=== PATIENT | male | born 1955 | race American Indian/Alaskan Native ===

== ENCOUNTER 2018-03-02 15:42 | Emergency (ER) | payer BC ==
[2018-03-02 15:55] VITALS: O2SAT 98
[2018-03-02] MEDS ORDERED: Sodium Chloride 0.9% 1,000 ML IV ONE (16:21)
[2018-03-02 16:44] LABS: BASO % 0.3 % (0.0-2.0); EOS % 0.1 % (0.0-4.0); HEMOGLOBIN 17.2 g/dL (12.0-18.0); LYMPH # 2.2 K/uL (1.0-4.3); LYMPH % 16.2 % (20.0-40.0); MEAN CELL VOLUME 97.6 fL (80.0-94.0); MEAN CORPUSCULAR HEMOGLOBIN 34.2 pg (27.0-31.0); MEAN PLATELET VOLUME 7.7 fL (7.2-11.7); MONO # 0.6 K/uL (0.0-0.8); MONO % 4.5 % (0.0-10.0); NEUT # 10.7 K/uL (1.8-7.0); NEUT % 78.9 % (50.0-75.0); NRBC % 0.1 % (0.0-2.0); RBC 5.05 Mil/uL (4.40-5.90); WHITE BLOOD COUNT 13.5 K/uL (4.8-10.8)
[2018-03-02 16:48] LABS: PROTHROMBIN TIME 11.2 SECONDS (9.7-12.2)
[2018-03-02 16:52] LABS: ALBUMIN 4.6 g/dL (3.5-5.0); ALT/SGPT 37 U/L (21-72); AST/SGOT 29 U/L (17-59); BLOOD UREA NITROGEN 12 mg/dL (9-20); CALCIUM 9.7 mg/dl (8.6-10.4); GFR AFRICAN-AMERICAN > 60; GFR NON-AFRICAN AMERICAN > 60; LIPASE 186 U/L (23-300)
[2018-03-02 17:03] LABS: GRANULAR CAST 4 /lpf (0-1); SQUAMOUS EPITHIAL 3 /hpf (0-5); URINE BACTERIA RARE (<OCC); URINE BILIRUBIN NEGATIVE (NEGATIVE); URINE BLOOD 1+ (NEGATIVE); URINE CLARITY Hazy (Clear); URINE COLOR Amber (YELLOW); URINE GLUCOSE (UA) NORMAL (Normal); URINE LEUKOCYTE ESTERASE NEG Leu/uL (Negative); URINE PROTEIN 2+ mg/dL (NEGATIVE); URINE UROBILINOGEN NORMAL mg/dL (0.2-1.0)
--- NOTE | 2018-03-02 17:09 | C.PDOC ---
History Of Present Illness 62 yo male with PMH HTN c/o abdominal pain that started this morning waking him up from sleep. The pain is colicky and in the lower quadrants. Also notes he has had multiple episodes of diarrhea with one episode of diarrhea with blood streaks. Notes last night he ate take out which he initially thought caused the symptoms. H/o hemorrhoids with banding 15+ years ago. H/o colonoscopy 10+ yrs ago. Denies fever, chest pain, sob, dizziness, bleeding anywhere else, hematuria , or vomiting. Time Seen by Provider: 03/02/18 16:04 Chief Complaint (Nursing): Abdominal Pain History Per: Patient History/Exam Limitations: no limitations Onset/Duration Of Symptoms: Hrs Current Symptoms Are (Timing): Still Present Associated Symptoms: Diarrhea Past Medical History Vital Signs: Last Vital Signs Temp 98 F 03/02/18 15:51 Pulse 113 H 03/02/18 15:51 Resp 20 03/02/18 15:51 BP 157/96 H 03/02/18 15:51 Pulse Ox 98 03/02/18 17:36 - Medical History PMH: HTN Family History: States: Unknown Family Hx - Social History Hx Alcohol Use: Yes Hx Substance Use: No Review Of Systems Except As Marked, All Systems Reviewed And Found Negative. Gastrointestinal: Positive for: Abdominal Pain, Diarrhea Physical Exam - Physical Exam Appears: Well, Non-toxic, No Acute Distress Skin: Normal Color, Warm, Dry Head: Atraumatic, Normacephalic Eye(s): bilateral: Normal Inspection, PERRL, EOMI Nose: Normal Oral Mucosa: Moist Neck: Normal, Normal ROM, Supple Chest: Symmetrical Cardiovascular: Rhythm Regular Respiratory: Normal Breath Sounds, No Accessory Muscle Use Gastrointestinal/Abdominal: Normal Exam, Soft, No Tenderness Rectal: Rectal Tone, Blood Streaked Stool, No Hemorrhoids, No Mass, Other (no fissures) Back: Normal Inspection Extremity: Normal ROM Neurological/Psych: Oriented x3, Normal Speech ED Course And Treatment - Laboratory Results Result Diagrams: 03/02/18 16:33 03/02/18 16:33 O2 Sat by Pulse Oximetry: 98 Progress Note: Imodium and protonix ordered. CAse endorsed to Dr Lucio pending ct and re-evaluation. Disposition - Disposition Disposition Time: 18:54 Condition: STABLE Forms: [employer] Display System (Scottish) - Clinical Impression Clinical Impression: Abdominal pain, Diarrhea, Rectal bleeding
[2018-03-02] MEDS ORDERED: Iodixanol 320 MG/ML 100 ML BOTTLE IV ONE (17:20)
[2018-03-02 19:04] VITALS: BP 158/97; PULSE 98; RESP 18; TEMP 98.9
--- NOTE | 2018-03-03 08:50 | CT ---
PROCEDURE: CT Abdomen and Pelvis without intravenous contrast HISTORY: GI Bleeding COMPARISON: None. TECHNIQUE: Multiple contiguous axial images were performed through the abdomen and pelvis with intravenous contrast. Subsequently, sagittal and coronal reformatted images were obtained. Contrast dose: 100 cc of Visipaque 320 intravenous contrast was administered. Radiation dose: Total exam DLP = 1110 mGy-cm. This CT exam was performed using one or more of the following dose reduction techniques: Automated exposure control, adjustment of the mA and/or kV according to patient size, and/or use of iterative reconstruction technique. FINDINGS: LOWER THORAX: Emphysematous changes. Lingular atelectasis. LIVER: Diffuse mild decrease in hepatic parenchymal density consistent with mild fatty infiltration. GALLBLADDER AND BILE DUCTS: Unremarkable. PANCREAS: Unremarkable. No gross lesion or ductal dilatation. SPLEEN: Splenule. In addition, there is a 7 millimeter enhancing foci within the periphery of the spleen on series 3, image 46, nonspecific. Clinical correlation. Correlation with multiphasic CT or MR may be helpful for further evaluation if clinically indicated. ADRENALS: Mild nodular thickening of the adrenal glands. KIDNEYS AND URETERS: Left renal low-attenuation in the lower pole measuring 9 millimeters with a Hounsfield unit attenuation of 6 suggestive for a cyst. Mild fullness of the left renal collecting system. VASCULATURE: Unremarkable. No aortic aneurysm. BOWEL: Segment of mild wall thickening at the junction of the sigmoid colon and descending suggestive for a mild acute versus chronic diverticulitis. Post treatment interval followup colonoscopy would be helpful to exclude underlying lesion. APPENDIX: Unremarkable. Normal appendix. PERITONEUM: Unremarkable. No free fluid. No free air. LYMPH NODES: Unremarkable. No enlarged lymph nodes. BLADDER: Underdistended urinary bladder. REPRODUCTIVE: Heterogeneous prostate with calcifications. BONES: Moderate degenerative changes in the spine. OTHER FINDINGS: Small fat containing paraumbilical hernia. IMPRESSION: Findings consistent with possible mild acute versus chronic diverticulitis of the sigmoid colon. Differential diagnosis includes sigmoid colitis. Post treatment interval colonoscopy may be helpful to exclude underlying lesion. Splenule. In addition, there is a 7 millimeter enhancing foci within the periphery of the spleen on series 3, image 46, nonspecific. Clinical correlation. Correlation with multiphasic CT or MR may be helpful for further evaluation if clinically indicated. Fatty infiltration of the liver. Left renal cyst. Additional findings as above. These findings were preliminarily reported at 6:54 p.m. on 03/02/[address] Saul De León from [facility].
== END 2018-03-02 19:19 | disposition home or self-care (01) ==
LOC: C.ER 15:42
DX: K62.5 Hemorrhage of anus and rectum (principal); R10.9 Unspecified abdominal pain; R19.7 Diarrhea, unspecified; I10 Essential (primary) hypertension
CPT/HCPCS: 74177; 80053; 81001; 83690; 85025; 85610; 85730; 86850; 86900; 96361; 96374; 99285; C9113; G0328; J7030; Q9967

== ENCOUNTER 2018-03-27 08:18 | Day surgery (SDC) | payer BC ==
[2018-03-25 11:16] VITALS: BMI 27.2
[2018-03-27] MEDS ORDERED: Propofol 10 mg/ml Inj (20 ML) ONE (09:53)
[2018-03-27] MEDS ORDERED: Lactated Ringer's 500 ML IV ONE ×2 (10:00)
[2018-03-27] MEDS ORDERED: Lidocaine Hydrochloride 5 ML INJ ONE (10:45)
[2018-03-27 11:02] VITALS: TEMP 97.7
[2018-03-27 14:01] VITALS: O2SAT 98
[2018-03-27 14:08] VITALS: BP 124/84; PULSE 72; RESP 15
== END 2018-03-27 11:50 | disposition home or self-care (01) ==
LOC: C.ENDO 08:18
PROVIDERS: ATTEND Internal Medicine Gastroenterology
DX: Z09 Encounter for follow-up examination after completed treatment for conditions other than malignant neoplasm (principal); I10 Essential (primary) hypertension; Z79.899 Other long term (current) drug therapy; K64.1 Second degree hemorrhoids; K57.90 Diverticulosis of intestine, part unspecified, without perforation or abscess without bleeding; D12.4 Benign neoplasm of descending colon
CPT/HCPCS: 45385; 88305; J2704; J7120

== ENCOUNTER 2018-11-26 06:23 | Day surgery (SDC) | payer BC ==
--- NOTE | 2018-11-26 08:32 | CP.SDSHP ---
Same Day Surgery H & P - History Proposed Procedure: colonoscopy Pre-Op Diagnosis: history of colon polyps - Previous Medical/Surgical History Cardiac: Hypertension - Allergies Allergies: Allergies No Known Allergies Allergy (Verified 11/26/18 06:44) - Physical Exam General Appearance: NAD Vital Signs: Vital Signs 11/26/18 06:56 Temperature 97.2 F L Pulse Rate 80 Respiratory 20 Rate Blood Pressure 134/83 O2 Sat by Pulse 97 Oximetry Mental Status: Alert & Oriented x3 Neuro: WNL Heart: WNL Lungs: WNL GI: WNL - {Optional Preform as Required} Abdomen: WNL - Impression Pt. Evaluated Today:Candidate for Anesthesia & Procedure: Yes - Date & Time Date: 11/26/18 Time: 08:32 Short Stay Discharge - Short Stay Discharge Admitting Diagnosis/Reason for Visit: DIVERTICULITIS Disposition: HOME/ ROUTINE
[2018-11-26] MEDS ORDERED: Propofol 10 mg/ml Inj (20 ML) ONE ×2 (08:34→08:51)
[2018-11-26] MEDS ORDERED: Lidocaine Hydrochloride 5 ML INJ ONE (08:35)
[2018-11-26] MEDS ORDERED: Lactated Ringer's 500 ML IV SCH (08:45)
[2018-11-26 10:23] VITALS: BMI 26.9
[2018-11-26 10:25] VITALS: BP 126/79; PULSE 78; RESP 20; TEMP 97.2; O2SAT 100
== END 2018-11-26 10:08 | disposition home or self-care (01) ==
LOC: C.ENDO 06:23
PROVIDERS: ATTEND Internal Medicine Gastroenterology
DX: K57.30 Diverticulosis of large intestine without perforation or abscess without bleeding (principal); Z53.8 Procedure and treatment not carried out for other reasons; K64.1 Second degree hemorrhoids; Z86.010 Personal history of colon polyps; I10 Essential (primary) hypertension
CPT/HCPCS: 45378; J2704; J3010; J7120